=== PATIENT | male | born 1955 | race Caucasian/White ===

== ENCOUNTER → 2016-05-19 | Outpatient (CLI) | payer BC ==
--- NOTE | 2016-05-20 12:56 | XR ---
Cervical spine HISTORY: Neck pain, right shoulder pain and numbness 5 views of the cervical spine There is multilevel spondylosis. The level facet arthropathy changes are present. C5-6 shows foramina l encroachment bilaterally. Anterolisthesis grade 1 C3-4, C4-5. Loss of disc height C5-6 and C6-7 wit h associated spondylosis. Prevertebral soft tissues are normal. There is head tilt towards the left. IMPRESSION: Degenerative disc disease and facet arthropathy, foraminal encroachment. Cervical MRI may be of benefit.
== END | disposition home or self-care (01) ==
LOC: RADXRYALE 11:24
PROVIDERS: ATTEND Physician Assistant Medical
DX: M48.02 Spinal stenosis, cervical region (principal); M50.30 Other cervical disc degeneration, unspecified cervical region; M46.02 Spinal enthesopathy, cervical region
CPT/HCPCS: 72050